=== PATIENT | male | born 1980 ===

== ENCOUNTER 2023-12-23 06:22 | Day surgery (SDC) | payer BC, SELFPAY ==
[2023-12-23] VITALS (8 sets, daily range): BP systolic 113–143; BP diastolic 66–88; BMI 26.5
[2023-12-23] MEDS: TYLENOL 1000 MG PO (08:19)
[2023-12-23] MEDS: NORMOSOL-R 1000 IV (08:20)
--- NOTE | 2023-12-23 11:55 | OR.RPT ---
Operative Report
Operative Report
Primary Surgeon: Valerie
Assisting: Adali ROBB
Pre-op Diagnosis: Right inguinal hernia
Post-op Diagnosis: Incarcerated right inguinal hernia
Procedure Performed: Robot assisted laparoscopic repair of right inguinal hernia
Anesthesia Type: GETA
Specimen / Cultures: None
Estimated Blood Loss: 5cc
Complications: None immediate
Operative Findings: Direct defect with incarcerated fat, pseudosac everted and stitched to Alejandro's; XL MID 3D max
Date of surgery: 12/23/23
Indications:� This 43M developed symptomatic right inguinal hernia. Robot assisted laparoscopic repair was planned.
Description of procedure:� The patient was taken to the operating room and positioned into supine position. The patient�s abdomen was prepped and draped in standard sterile fashion. A time-out was completed verifying correct patient, procedure,
site, positioning, and implants and special equipment prior to beginning this procedure.� A stab incision was made in the left upper quadrant, a Veress needle was inserted and proper position was confirmed by aspiration and saline drop test.
Following this, pneumoperitoneum was created with insufflation of carbon dioxide to 12 mmHg. Then a 8mm robotic trocar was inserted above and to the left of the umbilicus. A laparoscope was inserted and the area of initial trocar entry and Veress
needle placement were both inspected and no injuries were found. Two 8mm trocars were then placed lateral to the rectus sheath under direct visualization.
Both inguinal regions were inspected and the median umbilical ligament, medial umbilical ligament, and lateral umbilical fold were identified. The left groin was inspected and no abnormalities were found. Attention was turned to the right groin. The
peritoneum was incised transversely above the defect and a flap was developed in the caudad direction. Alejandro�s ligament was identified ultimately dissected to its junction with the iliac vein and the space of Retzius was developed bluntly.� The
dissection was continued inferiorly to the iliopubic tract, with care taken to avoid injury to the femoral branch of the genitofemoral nerve and the lateral femoral cutaneous nerve. The cord structures were parietalized.
The direct space was inspected and a hernia was identified and reduced by gentle traction and the pseudosac was everted and sutured to Alejandro's ligament with 2-0 vicryl suture. The femoral space was inspected and a defect was not identified.� The
indirect space was inspected and a hernia was not identified. The canal was inspected and a tiny cord lipoma was reduced.
Extra large right MID 3D max mesh was passed through a trocar. The mesh was placed into the preperitoneal space and moved into position to lay flat and completely cover the direct, indirect, and femoral spaces with overlap beyond the midline. The
mesh was secured into place using 2-0 vicryl suture to Alejandro�s ligament medially and laterally. Care was taken to avoid the inferolateral triangles containing the iliac vessels and genital nerves.
The peritoneal flap was closed over the mesh and secured with 2-0 monocryl stratafix suture in similar positions of safety. A 14g angiocath was used to decompress the preperitoneal space revealing good seal and all mesh in good position without
folding or curling. After ensuring adequate hemostasis, the trocars were removed and the pneumoperitoneum allowed to escape. The trocar incisions were closed at the skin level using 4-0 monocryl and topical skin adhesive. All counts were correct and
the patient tolerated the procedure well and was taken to the postanesthesia care unit in stable condition.
[2023-12-23] MEDS: DILAUDID 0.25 MG IV ×2 (12:02→12:19)
== END 2023-12-23 13:51 | disposition home or self-care (01) ==
LOC: SDS 06:22
PROVIDERS: ATTENDING PHYSICIAN Surgery
DX: K40.30 Unilateral inguinal hernia, with obstruction, without gangrene, not specified as recurrent (principal)
CPT/HCPCS: 49650; C1781

== ENCOUNTER → 2024-05-15 14:27 | Outpatient (REF) | payer BC, SELFPAY | LOC: HWRAD 14:27 | PROVIDERS: ATTENDING PHYSICIAN Podiatrist Foot & Ankle Surgery; FAMILY PHYSICIAN Family Medicine | DX: M72.2 Plantar fascial fibromatosis (principal); M89.8X7 Other specified disorders of bone, ankle and foot; M76.61 Achilles tendinitis, right leg | CPT/HCPCS: 73650 ==